=== PATIENT | male | born 1985 | race Hispanic/Latino ===

== ENCOUNTER 2020-11-11 12:13 | Outpatient (CLI) | payer BC | END 2020-11-11 12:14 | disposition home or self-care (01) | LOC: BICMRI 12:13 | PROVIDERS: ATTEND Specialist | DX: M51.16 Intervertebral disc disorders with radiculopathy, lumbar region (principal); M51.37 Other intervertebral disc degeneration, lumbosacral region | CPT/HCPCS: 72148 ==

== ENCOUNTER 2022-09-17 10:19 | Outpatient (CLI) | payer BC | END 2022-09-17 10:20 | disposition home or self-care (01) | LOC: TBSIIMAG 10:19 | PROVIDERS: ATTEND Specialist | DX: M51.16 Intervertebral disc disorders with radiculopathy, lumbar region (principal); M47.26 Other spondylosis with radiculopathy, lumbar region; M47.817 Spondylosis without myelopathy or radiculopathy, lumbosacral region | CPT/HCPCS: 72148 ==

== ENCOUNTER 2023-12-09 13:44 | Day surgery (SDC) | payer BC ==
[2023-12-09] MEDS ORDERED: Lidocaine 2% PF 5 ML VIAL ONE (14:49)
[2023-12-09] MEDS ORDERED: Rocuronium Bromide 10 MG/ML (10ML VIAL) ONE ×2 (14:49→15:57)
[2023-12-09] MEDS ORDERED: PROPOFOL 0 ML ONE (14:50)
[2023-12-09] MEDS ORDERED: Bupivacaine 0.25% HCL 30 ML VIAL ONE (15:53)
[2023-12-09] MEDS ORDERED: EPINEPHrine 1 MG/ML VIAL ONE (15:53)
[2023-12-09] MEDS ORDERED: fentaNYL PF 100 MCG/2 ML SYRINGE ONE (15:57)
[2023-12-09] MEDS ORDERED: PROPOFOL 20 ML ONE (15:57)
[2023-12-09] MEDS ORDERED: Midazolam HCl 2 mg/2 ml Vial ONE (15:58)
[2023-12-09] MEDS ORDERED: Indocyanine Green 25 MG/10 ML VIAL ONE (16:03)
[2023-12-09] MEDS ORDERED: cefOXitin 2 GM VIAL ONE (16:23)
[2023-12-09] MEDS ORDERED: Sodium Chloride 0.9% 100 ML ONE (16:23)
[2023-12-09] MEDS ORDERED: Dexamethasone 20 MG/5 ML VIAL ONE (16:35)
[2023-12-09] MEDS ORDERED: Ondansetron PF 4 MG/2 ML Vial ONE (16:58)
[2023-12-09] MEDS ORDERED: fentaNYL 50 mcg/mL 1 mL Vial ONE ×2 (17:05→18:37)
[2023-12-09] MEDS ORDERED: Ondansetron HCl/PF 4 MG/2 ML Vial IVP PRN (17:13)
[2023-12-09] MEDS ORDERED: HYDROmorphone 2 MG/ML VIAL SLOW IVP PRN (17:13)
[2023-12-09] MEDS ORDERED: Promethazine HCl 25 MG/ML VIAL IM PRN (17:13)
[2023-12-09] MEDS ORDERED: Morphine Sulfate 2 MG/ML SYRINGE SLOW IVP PRN (17:13)
[2023-12-09] MEDS ORDERED: PACU-Morphine 4MG/ML VIAL SLOW IVP PRN (17:13)
[2023-12-09] MEDS ORDERED: Ketorolac Tromethamine 30 MG (1 mL) VIAL ONE (17:24)
[2023-12-09] MEDS ORDERED: SUGAMMADEX SODIUM 200 MG/2 ML VIAL ONE (17:27)
[2023-12-09] MEDS ORDERED: MINERAL OIL/WHITE PETROLATUM 3.5 GM TUBE ONE (17:46)
== END 2023-12-09 19:30 | disposition home or self-care (01) ==
LOC: SDC/OP 13:44
PROVIDERS: ATTEND Surgery
PROC: 0FT44ZZ Resection of Gallbladder, Percutaneous Endoscopic Approach (ICD-10-PCS; principal; 2023-12-09)
DX: K80.12 Calculus of gallbladder with acute and chronic cholecystitis without obstruction (principal); K82.A1 Gangrene of gallbladder in cholecystitis
CPT/HCPCS: 88304; C1889; J0171; J0665; J0694; J1100; J1885; J2001; J2250; J2405; J2704; J3010; J3490